=== PATIENT | female | born 1965 | race Caucasian/White ===

== ENCOUNTER → 2020-10-01 06:45 | Outpatient (CLI) | payer SELFPAY | PROVIDERS: PCP Family Medicine; Visit Provider Internal Medicine Cardiovascular Disease | DX: Z13.6 Encounter for screening for cardiovascular disorders (principal) | CPT/HCPCS: 75571 ==

== ENCOUNTER → 2020-10-01 06:50 | Outpatient (CLI) | payer OTHER, SELFPAY ==
--- NOTE | 2020-10-01 06:54 | CA_ITS ---
APPROVED REPORT Exam: Pharmacologic Technologist: oscar molina, Ht: 5 ft 3 in Wt: 224 lbs BSA: 2.03 m2 HR: 53 bpm BP: 167/81 mmHg Indications: CP, Dyspnea Medical History Medications: Asa,,,,, Norvasc,,,,, Tizanidine,,,,, TriaMt/HCTZ,,,,,Losartan,,,,,Metoprolol Allergies: CEFTIN, PCN Cardiac Risk Factors: HTN, FHX of CAD Stress Test Details Test: LEXISCAN HR Resting HR: 57 bpm Max Heart Rate (APMHR): 165.664336 bpm Max HR Achieved: 80 bpm Target HR (85% APMHR): 140.808908 bpm % of APMHR: 48.48 Recovery HR: 71 bpm BP Resting BP: 167/81 mmHg Max BP: 183/77 mmHg Recovery BP: 160.0/82.0 mmHg ECG Resting ECG: Sinus bradycardia, low voltage QRS Medications Administered Cardizem Injection ( mg at ) Clinical Exercise duration: 04:01 min Highest Stage Achieved: Stress ECG Conclusion SOA, mild chest discomfort, brief anxiety, and malaise at peak infusion that resolved during recovery. No arrhythmia or ectopy. No significant ST changes. Unremarkable Lexiscan stress. Images reported separately. Test Summary REST 04:21 . . 57 . 167/ 81 . . Stage 1 01:00 . . 79 . . . . Stage 2 01:00 . . 78 . 183/ 77 . . Stage 3 01:00 . . 73 . . . . Stage 4 01:00 . . 71 . 171/ 78 . . Stage 4 01:01 . . 71 . 171/ 78 . Stop exercise at 04:01 RECOVERY 01:00 . . 71 . 160/ 82 . . RECOVERY 02:00 . . 71 . 160/ 82 . . RECOVERY 03:00 . . 68 . 167/ 75 . . RECOVERY 04:00 . . 70 . 167/ 75 . . Electronically signed by : Daniel Kirkland, 10/01/2020 20:09:40
--- NOTE | 2020-10-01 06:54 | NM_ITS ---
APPROVED REPORT Exam: Nuclear Stress Test Indication: Chest pain, SOB, Fatigue, HTN, Family history Patient Location: Outpatient Stress Tech: Capricesangeeta Faustin [place] Tech:Violeta Morley, ARRT, RT (R)(N) Ht: 5 ft 3 in Wt: 230 lbs Bra Size: 40D HR: 53 bpm BP: 167/81 mmHg BSA: 2.05 m2 BMI: 40.7 History: Chest pain, SOB, Fatigue, HTN, Family history Procedure: Patient received a 0.4 mg of intravenous Lexiscan, resting heart rate 53 bpm, resting blood pressure 167/81 mmHg, with Lexiscan maximum heart rate achived was 77 bpm which is Less than 85 % of the maximum predicted heart rate and blood pressure was 183/77 mmHg. Electrocardiogram Resting electrocardiogram showed sinus rhythm nonspecific ST-T changes, with Lexiscan there is less than 1.[address] segment depression noted from the baseline EKG. The EKG portion of the Lexiscan is nondiagnostic. Cardiac Stress and Resting SPECT Images: Cardiac Stress and Resting SPECT images were obtained using technetium 99m Myoview 30.4 mCi stress and 10.91 mCi at rest. Gated SPECT for analysis of segmental wall motion and calculation of the ejection fraction also done. Prone images were also obtained. Cardiac stress and resting SPECT images show uniform myocardial activity without segmental perfusion abnormality, computer derived ejection fraction is over 65% with no regional wall motion abnormality, right ventricle is normal size and contractility. Conclusion: 1. The EKG portion of the Lexiscan is nondiagnostic. 2. No scintigraphic evidence of reversible ischemia seen, computer derived ejection fraction is over 65% with no regional wall motion abnormality, right ventricle is normal size and contractility. 3. Normal Lexiscan Myoview study. Electronically signed by : Daniel Kirkland, 10/01/2020 20:25:21
--- NOTE | 2020-10-01 06:54 | CA_ITS ---
APPROVED REPORT EXAM: Comprehensive 2D, Doppler, and color-flow Echocardiogram Historiography Teacher: KARIN Fonseca, RVS Ht: 5 ft 3 in Wt: 224lbs BSA: 2.03 BP: 185/89 mmHg Indications: CP, SOB, Palpitations, Abn EKG,Family Hx-Afib/CAD Echo Enhancing Agent Comments: Poor acoustic properties throughout exam due to large body habitus. 2D Dimensions IVSd 0.84 cm LVEF (Visual) 58.20 % PWd 1.09 cm LA Volume 60.70 mL LVDd 4.82 cm LA Volume Index 29.90 mL/m2 (M/F) 16-34 LVDs 3.34 cm Aortic Root 3.04 cm Left Atrium 3.76 cm LVOT 1.92 cm (M/F) 1.5-2.5 M-Mode Dimensions LA Diam 3.86 cm (1.9-4.0) Ao Diam 3.05 cm (2.0-3.7) EPSs 0.34 cm TAPSE 2.39 (<1.7) LV Diastology E Decel Time 317.00 (160-240 msec) E/A Ratio 0.86 MED E' 10.10 (< 7 cm/sec) MED A' 9.70 cm/s E'/MED E' Ratio 7.01 (>14) Aortic Valve LVOT Max 123.00 (70-110 cm/s) LVOT VTI 29.80 cm AoV Peak Scooby. 136.00 (50-130 cm/s) AO Peak GR. 7.40 mmHg AO Mean GR. 3.70 (<5 mmHg) AO VTI 31.48 (18-25 cm) JOSSELIN (VTI) 2.74 (2.5-4.5 cm2) Mitral Valve MV E Max Scooby. 71.00 (40-130 cm/s) MV A Velocity 82.00 (40-130 cm/s) E/A Ratio 0.86 MV Decel. Time 317.00 (160-240 ms) MV PHT 93.00 ms Tricuspid Valve TR P. Velocity 253.00 cm/s RAP Estimate 10.00 mmHg RVSP 35.60 mmHg Left Ventricle Left atrium is mildly enlarged, left ventricle is normal size, mild concentric left ventricular hypertrophy, visually estimated ejection fraction 55% with no regional motion abnormality. 50 7C. Right Ventricle Right atrium right ventricle normal size and contractility. Aortic Valve Is minimally thickened and fibrosed, there is no aortic stenosis or aortic insufficiency. Mitral Valve Mitral valve is grossly normal, there is trace mitral regurgitation. Tricuspid Valve Tricuspid grossly normal, there is trace tricuspid regurgitation, calculated right ventricular systolic pressure is 34 mmHg. Pulmonic Valve Pulmonic valve is poorly visualized. Great Vessels Aortic root is normal size. Inferior vena cava is normal size with normal inspiratory collapse. Pericardium No significant pericardial effusion noted. Conclusion 1. Mildly enlarged left atrium, normal left ventricular size, mild concentric left ventricular hypertrophy, visually estimated ejection fraction 55% with no regional wall motion abnormality, diastolic parameters are inconclusive. 2. Trace mitral and tricuspid regurgitation, calculated right ventricular systolic pressure 34 mmHg. 3. No significant pericardial effusion noted. Electronically signed by : Daniel Kirkland, 10/01/2020 19:43:52
--- NOTE | 2020-10-01 07:02 | CT_ITS ---
PROCEDURE: CT HEART W CALCIUM SCORE CLINICAL HISTORY: EVAL FOR CAD COMPARISON: No exams were available for comparison TECHNIQUE: Axial images obtained with sagittal and coronal reformats. All CT scans at the facility use one or more dose reduction, viz: automated exposure control, ma/kV adjustment per patient size (including targeted exams where dose is matched to indication, i.e. head), or iterative reconstruction technique. FINDINGS: Coronary artery calcium score is 183. Moderate calcific plaque burden with high cardiovascular disease risk. IMPRESSION: Moderate calcific plaque burden with high cardiovascular disease risk Dictated by: Babar Mueller MD 10/01/2020 10:38 Babar Mueller MD in [place] 10/01/2020 10:38
--- NOTE | 2020-10-01 09:10 | HMH.ITSHM ---
Current Home Medications as stated by this patient Shannan Casillas or medical center representative. []TIZANIDINE METOPROLOL LOSARTAN VITAMIN D3 ASA AMLODIPINE
== END ==
PROVIDERS: PCP Family Medicine; Visit Provider Internal Medicine Cardiovascular Disease
DX: R06.00 Dyspnea, unspecified (principal); R00.2 Palpitations; I10 Essential (primary) hypertension; R53.83 Other fatigue; R60.0 Localized edema; R06.83 Snoring; R40.0 Somnolence
CPT/HCPCS: 75571; 78452; 93017; 93306; A9502; J2785

== ENCOUNTER → 2021-02-14 14:20 | Outpatient (CLI) | payer OTHER, SELFPAY | PROVIDERS: PCP Family Medicine; Visit Provider Internal Medicine Cardiovascular Disease | DX: R06.00 Dyspnea, unspecified (principal); R00.2 Palpitations; I10 Essential (primary) hypertension; R60.0 Localized edema; R94.31 Abnormal electrocardiogram [ECG] [EKG] | CPT/HCPCS: 93270 ==